=== PATIENT | female | born 1930 | race Caucasian/White ===

== ENCOUNTER 2018-11-18 13:24 | Inpatient (IN) | payer MEDICARE, SELFPAY ==
[~2018-11-18] VITALS: Ht 160 cm; Wt 77.1 kg
--- NOTE | ~2018-11-18 | PR ---
[place], [place] PROGRESS NOTE NAME: YAW CHENLaura Carcamo UNIT #: [id number] ROOM: 522 DOCTOR: BEBETO URENA MD BIRTHDATE: [birth year] DOS: 11/20/2018 CARDIOLOGY PROGRESS NOTE SUBJECTIVE: The patient was seen today on 11/20/2018 in the Cardiology Department just prior to her stress test. She is an 87-year-old woman who has had a long history of intermittent palpitations. She had a prolonged episode, which prompted the current admission and was found to have a narrow complex tachycardia consistent with AV carol reentrant tachycardia. It did resolve spontaneously. In the hospital, when it recurred, she was able to abort it with deep breaths. She also did have an episode of wide complex tachycardia consistent with monomorphic nonsustained ventricular tachycardia. We are therefore asked to see her. She tells me that she had a spell early this morning, but now feels well. She denies any chest pain, shortness of breath or syncope. PHYSICAL EXAMINATION: VITAL SIGNS: Her pulse is 78 and regular. Blood pressure is 127/66. NECK: Supple. She has no jugular distention. Carotids are full. LUNGS: Respirations are unlabored. Chest is clear to auscultation and percussion. HEART: Has a regular rhythm. There is an S4 gallop. ABDOMEN: Benign. EXTREMITIES: Showed no edema. IMPRESSIONS: 1. Supraventricular tachycardia. 2. Nonsustained ventricular tachycardia. PLAN: If her stress test is entirely normal, I would start her on a beta zoraida and observe her as an outpatient; however, if she does show significant ischemia, then cardiac assessment including the possibility of catheterization may still be needed. I thank the hospitalist physicians for asking our advice regarding her care. [place], [place] PROGRESS NOTE NAME: STEFANI CHEN UNIT #: [id number] ROOM: 522 DOCTOR: BEBETO URENA MD BIRTHDATE: [birth year] BEBETO URENA MD CM:PNTRANS [id number] BEBETO URENA MD 11/21/18 0132 interface
--- NOTE | ~2018-11-18 | EKG ---
[place], [place] ELECTROCARDIOGRAM REPORT NAME: STEFANI CHEN UNIT #: [id number] ROOM: 522 DOCTOR: ISAIAH DRAFT REPORT BIRTHDATE: [birth year] [facility] Test Date: 2018-11-18 Test Time: 13:31:02 Pat Name: STEFANI CHEN Department: Room: 522 Gender: F Estimating Manager: SKINNY : [id number] Requested By: BELLE ROUSE Order Number: [id number] Reading MD: Maximiliano Leblanc MD Measurements Intervals [place] Rate: 100 P: 45 WA: 180 QRS: -66 QRSD: 105 T: 49 QT: 343 QTc: 443 Interpretive Statements Sinus tachycardia Multiple ventricular premature complexes Left anterior fascicular block Abnormal R-wave progression, late transition Electronically Signed On 11-19-2018 5:51:17 PST by Maximiliano Leblanc MD CM:EKGRPT:ELECTROCARDIOGRAM REPORT [id number] BELLE WADDELL DRAFT REPORT BELLE ROUSE DO
[2018-11-18 13:24] VITALS: BP 158/71
[2018-11-18 14:43] LABS: BASO # 0.1 10*3/uL (0.0-0.1); BASO % 0.7 % (0.0-1.0); EOS # 0.4 10*3/uL (0.0-0.4); EOS % 4.6 % (1.0-4.0); HEMATOCRIT 39.1 % (37.0-47.0); HEMOGLOBIN 13.2 g/dl (12.0-16.0); LYMPH # 2.7 10*3/uL (1.3-4.4); LYMPH % 28.5 % (27.0-41.0); MEAN CELL VOLUME 90.9 fl (81.0-99.0); MEAN CORPUSCULAR HGB 30.7 pg (27.0-31.0); MEAN CORPUSCULAR HGB CONC 33.8 g/dl (33.0-37.0); MEAN PLATELET VOLUME 11.7 fl (9.6-12.3); MONO # 0.9 10*3/uL (0.1-1.0); NEUT # 5.4 10*3/uL (2.3-7.9); NEUT % 56.9 % (47.0-73.0); PLATELET COUNT AUTOMATED 254 10*3/uL (130-400); RED CELL DISTRI WIDTH 14.4 % (0-14.5); WHITE BLOOD COUNT 9.5 10*3/uL (4.8-10.8)
[2018-11-18 14:51] LABS: ACT PARTIAL THROMBO TIME 23.9 SECONDS (20.8-31.5)
[2018-11-18 14:55] VITALS: BP 181/61
[2018-11-18 15:02] LABS: ALBUMIN 3.3 gm/dl (3.1-4.5); ALKALINE PHOSPHATASE 84 U/L (45-117); BUN 22 mg/dl (7-24); CHLORIDE 109 mmol/L (98-107); CREATININE 1.09 mg/dL (0.55-1.02); LIPASE 172 U/L (73-393); POTASSIUM 3.8 mmol/L (3.5-5.1); SGOT/AST 20 IU/L (3-35); SGPT/ALT 23 U/L (12-78); SODIUM 142 mmol/L (136-145); TOTAL PROTEIN 7.1 gm/dL (6.4-8.2)
[2018-11-18 15:05] LABS: TROPONIN I < 0.015 ng/ml (<0.045)
[2018-11-18 15:10] LABS: BILIRUBIN NEGATIVE (NEGATIVE); BLOOD TRACE-INTACT (NEGATIVE); CLARITY CLEAR (CLEAR); COLOR YELLOW (YELLOW); GLUCOSE NEGATIVE (NEGATIVE); KETONE NEGATIVE (NEGATIVE); LEUKO ESTERASE NEGATIVE (NEGATIVE); NITRITE NEGATIVE (NEGATIVE); PH 7.5 (5.0-9.0); SPECIFIC GRAVITY <= 1.005 (1.005-1.030); UROBILINOGEN 0.2 E.U./dl (0.2-1.0)
[2018-11-18 15:32] LABS: BACTERIA TRACE; EPITHELIAL CELLS 0-2; RBC 0-2 rbc/hpf (0-2)
[2018-11-18 16:45] VITALS: BP 144/54
--- NOTE | 2018-11-18 16:45 | NUR ---
A 87, admitted to , under the services of JULIANO Burgos DO with a diagnosis of PALPITATIONS,NEAR SYNCOPE. Chief complaint is HEART PALPITATIONS AT HOME TODAY. Patient arrived via bed from ER. Monitor applied. Initial assessment completed. Vital signs taken and recorded. JULIANO BURGOS DO notified of admission to the unit. Orders received. See assessment for past medical history, medications and allergies. Patient and/or family oriented to unit. [facility]. Clothing/patient valuable form completed. DANTE TITUS R
[2018-11-18] MEDS ORDERED: ZESTRIL10 MG PO (17:16)
[2018-11-18] MEDS ORDERED: NORVASC5 MG PO (17:17)
--- NOTE | 2018-11-18 17:49 | NUR ---
CALLED DR. URENA ANSWERING SERVICE REGARDING CONSULT. THEY WILL PAGE HIM.
--- NOTE | 2018-11-18 18:03 | NUR ---
DR. URENA CALLED AWARE OF CONSULT. WILL SEE PT IN AM.
--- NOTE | 2018-11-18 19:00 | NUR ---
RESTING IN BED. NO C/O AT THIS TIME. VISITORS AT HER SIDE. CALL LIGHT NI REACH.
[2018-11-18 20:00] VITALS: BP 145/78
[2018-11-19] VITALS: BP 151/76
[2018-11-19 06:35] LABS: BASO # 0.1 10*3/uL (0.0-0.1); BASO % 0.7 % (0.0-1.0); EOS # 0.5 10*3/uL (0.0-0.4); HEMOGLOBIN 13.7 g/dl (12.0-16.0); LYMPH # 3.2 10*3/uL (1.3-4.4); LYMPH % 34.2 % (27.0-41.0); MEAN CELL VOLUME 91.1 fl (81.0-99.0); MEAN CORPUSCULAR HGB 30.4 pg (27.0-31.0); MEAN CORPUSCULAR HGB CONC 33.4 g/dl (33.0-37.0); MEAN PLATELET VOLUME 11.6 fl (9.6-12.3); MONO # 0.9 10*3/uL (0.1-1.0); NEUT # 4.7 10*3/uL (2.3-7.9); NEUT % 49.7 % (47.0-73.0); PLATELET COUNT AUTOMATED 259 10*3/uL (130-400); RED CELL DISTRI WIDTH 14.6 % (0-14.5); WHITE BLOOD COUNT 9.4 10*3/uL (4.8-10.8)
[2018-11-19 06:57] LABS: ALBUMIN 3.2 gm/dl (3.1-4.5); BUN 21 mg/dl (7-24); CHLORIDE 109 mmol/L (98-107); CHOLESTEROL 175 mg/dL (<200); CREATININE 1.04 mg/dL (0.55-1.02); HDL CHOLESTEROL 53 mg/dl (40-60); LDL CHOLESTEROL 84 mg/dL (9-159); PHOSPHOROUS 3.3 mg/dL (2.5-4.9); POTASSIUM 4.5 mmol/L (3.5-5.1); SGOT/AST 16 IU/L (3-35); SGPT/ALT 24 U/L (12-78); SODIUM 142 mmol/L (136-145); TOTAL PROTEIN 6.9 gm/dL (6.4-8.2); TRIGLYCERIDES 191 mg/dl (<150); VLDL CHOLESTEROL 38 mg/dL (6-40)
[2018-11-19 07:03] LABS: ALKALINE PHOSPHATASE 81 U/L (45-117); FREE T4 0.83 ng/dl (0.76-1.46)
--- NOTE | 2018-11-19 07:30 | NUR ---
Patient resting quietly with no c/o discomfort. Respirations easy and regular. Vital signs stable. No overt distress. GENESIS PATRICK
[2018-11-19 08:00] VITALS: BP 140/80
--- NOTE | 2018-11-19 08:50 | NUR ---
FULL CHART CHECK.
--- NOTE | 2018-11-19 10:51 | NUR ---
Maintenance Inspector in to talk to patient. Patient states lives at HOME with ALONE. There are FEW steps in the home. Physician: ALIA Pharmacy: [facility] health services: NONE Patient's level of ADLs: INDEPENDENT Patient has working utilities: YES DME: NONE Follow-up physician's appointment after d/c: WILL BE MADE BY HOSPITALIST NURSE DIRECTOR ON DISCHARGE Does patient want to access PORTAL?: NO Discharge plan PT LIVES AT HOME ALONE AND HER DAUGHTER SPENDS THE NIGHT WITH HER. PT AND DAUGHTER STATE THAT PT IS INDEPENDENT IN HER CARE. NO NEEDS ON DISCHARGE AT THIS TIME. DAUGHTER WILL TAKE PT HOME ON DISCHARGE. WILL CONTINUE TO FOLLOW.. FAN MOJICA
[2018-11-19 12:00] VITALS: BP 139/73
[2018-11-19 16:00] VITALS: BP 145/57
--- NOTE | 2018-11-19 17:00 | NUR ---
YAN OG AND AYANNA NOTIFIED OF SVT INTO THE 170s THAT RESOLVED VERY QUICKLY BY THE PT TAKING DEEP BREATHS.
[2018-11-19 20:00] VITALS: BP 152/80
--- NOTE | 2018-11-19 21:39 | NUR ---
PATIENT IS AAOX3 RESTING IN BED WITH EASY AND REGULAR RESPERS ON ROOM AIR. ASSESSMENT IS COMPLETE WITH NO C/O OR S/S OF DISTRESS NOTED AT THIS TIME. BED IS LOW, LOCKED, AND CALL LIGHT IS WITHIN REACH. 2200 MEDICATIONS GIVEN AT THIS TIME AND PATIENT TOLERATED WELL. SEE SHIFT ASSESSMENT.
[2018-11-20] VITALS: BP 127/66
--- NOTE | 2018-11-20 00:57 | NUR ---
CALL RECIEVED FROM BOX TOE BUFFER THAT PT.'S HEART RATE IS IN 150'S AT THIS TIME. WOKE PT. UP TO ASSESS, PT. INFORMED THAT HEART RATE IS REALLY HIGH IN 150'S, WHILE WATCHING MEAT TEAM MEMBER PATIENT TOOK A FEW DEEP BREATHS AND HEART RATE DECREASED TO 80'S. PATIENT WAS ASYMPTOMATIC AND CALL LIGHT IS WITHIN REACH.
--- NOTE | 2018-11-20 03:30 | NUR ---
PATIENT IS SLEEPING WITH EASY AND REGULAR RESPERS ON ROOM AIR. NO S/S OF DISTRESS NOTED AT THIS TIME. CALL LIGHT IS WITHIN REACH.
[2018-11-20 06:53] LABS: BASO # 0.1 10*3/uL (0.0-0.1); BASO % 0.7 % (0.0-1.0); EOS # 0.6 10*3/uL (0.0-0.4); EOS % 4.7 % (1.0-4.0); HEMATOCRIT 45.3 % (37.0-47.0); LYMPH # 4.6 10*3/uL (1.3-4.4); LYMPH % 37.9 % (27.0-41.0); MEAN CELL VOLUME 92.1 fl (81.0-99.0); MEAN CORPUSCULAR HGB 30.5 pg (27.0-31.0); MEAN CORPUSCULAR HGB CONC 33.1 g/dl (33.0-37.0); NEUT # 5.9 10*3/uL (2.3-7.9); NEUT % 48.3 % (47.0-73.0); PLATELET COUNT AUTOMATED 302 10*3/uL (130-400); RED BLOOD COUNT 4.92 10*6/uL (4.10-5.10); RED CELL DISTRI WIDTH 14.6 % (0-14.5); WHITE BLOOD COUNT 12.2 10*3/uL (4.8-10.8)
[2018-11-20 06:58] LABS: CREATININE 1.32 mg/dL (0.55-1.02); POTASSIUM 4.4 mmol/L (3.5-5.1)
--- NOTE | 2018-11-20 08:15 | NUR ---
Patient resting quietly with no c/o discomfort. Respirations easy and regular. Vital signs stable. No overt distress. GENESIS PATRICK
--- NOTE | 2018-11-20 11:30 | NUR ---
INFORMED CONSENT OBTAINED FOR LEXISCAN NUCLEAR STRESS TEST WITH DR. URENA. RESTING EKG NSR WITH A RESTING HR OF 95 AND BP OF 118/80. LUNGS CLEAR WITH A SPO2 OF 99% ON ROOM AIR. PT COMPLETED A 1:00 LEXISCAN PROTOCOL RECEIVING LEXISCAN 0.4 MG IV OVER 10 SECONDS. HAD NO CHEST PAIN OR ANY EKG CHANGES. DID HAVE C/O "ODD FEELING" THAT RESOLVED IN RECOVERY. HAD A PEAK HR OF 125 WITH BP OF 102/54. LAST RECOVERY HR OF 98 WITH BP OF 106/62. AWAITING SCANNING IN STABLE CONDITION.
[2018-11-20 13:24] VITALS: BP 120/71
--- NOTE | 2018-11-20 14:00 | NUR ---
FAMILY IN ROOM, QUESTIONS ANSWERED.
[2018-11-20 16:00] VITALS: BP 127/77
[2018-11-20] MEDS ORDERED: METOPROLOL SUCC25 M2 PO (17:29)
--- NOTE | 2018-11-20 18:23 | NUR ---
LEAVING VIA WHEELCHAIR IN CARE OF DAUGHTER.
== END 2018-11-20 18:23 | disposition home or self-care (01) | DRG 641 ==
LOC: ED 13:24 → 5E 15:50 → EDHOLD 15:50 → 5E 16:35
PROVIDERS: Emergency Medicine; Internal Medicine; ADMIT Internal Medicine
PROC: 4A02XM4 Measurement of Cardiac Total Activity, External Approach (ICD-10-PCS; principal; 2018-11-20)
PROC: 3E073KZ Introduction of Other Diagnostic Substance into Coronary Artery, Percutaneous Approach (ICD-10-PCS; principal; 2018-11-20)
DX: E86.0 Dehydration (principal); I47.1 Supraventricular tachycardia; E44.1 Mild protein-calorie malnutrition; R00.2 Palpitations; I10 Essential (primary) hypertension; E03.9 Hypothyroidism, unspecified; K57.90 Diverticulosis of intestine, part unspecified, without perforation or abscess without bleeding; K21.9 Gastro-esophageal reflux disease without esophagitis; E87.8 Other disorders of electrolyte and fluid balance, not elsewhere classified; R73.9 Hyperglycemia, unspecified; R73.03 Prediabetes; E78.1 Pure hyperglyceridemia; I49.3 Ventricular premature depolarization; E83.41 Hypermagnesemia; R31.9 Hematuria, unspecified; Z90.49 Acquired absence of other specified parts of digestive tract; Z90.710 Acquired absence of both cervix and uterus; Z80.9 Family history of malignant neoplasm, unspecified; Z88.8 Allergy status to other drugs, medicaments and biological substances; Z88.6 Allergy status to analgesic agent; Z91.041 Radiographic dye allergy status; Z79.899 Other long term (current) drug therapy; Z68.30 Body mass index [BMI] 30.0-30.9, adult